=== PATIENT | female | born 1970 | race Caucasian/White ===

== ENCOUNTER → 2016-10-31 | Outpatient (CLI) | payer BC ==
--- NOTE | 2016-10-31 14:27 | FL ---
Esophagram INDICATION: Worsening aspiration of water and thin liquids, vomiting at night Double air-contrast technique is utilized to evaluate the esophagus. The esophagus dilates to normal caliber has normal contour to the gastroesophageal junction. Gastroesophageal junction opens to colten l caliber. No intraluminal or extramural defects are evident. Reflux was not elicited during the exam ination. No secondary or tertiary contractions were evident. There is complete stripping of the esoph ageal bolus the horizontal drinking position. IMPRESSIONS: 1. Normal esophagram
== END | disposition home or self-care (01) ==
LOC: RADFLWHC 08:21
PROVIDERS: ATTEND Otolaryngology
DX: R13.10 Dysphagia, unspecified (principal); R49.0 Dysphonia
CPT/HCPCS: 74220

== ENCOUNTER → 2016-12-01 | Outpatient (CLI) | payer BC ==
[2016-12-01 11:02] LABS: Appearance,Urine Turbid (Clear); Bilirubin,Urine Negative (Negative); Glucose,Urine (UA) Negative (Negative); Ketones,Urine Negative (Negative); Leukocyte Esterase,Urine Negative (Negative); Mucus,Urine Rare /hpf; Nitrite,Urine Negative (Negative); PH, Urine 5.5 (5.0-8.0); Particle Count 3026; Protein,Urine Negative (Negative); RBC,Urine 13 /hpf (0-5); Specific Gravity,Urine 1.012 (1.001-1.035); Squamous Epithelial Cell,Urine 1 /hpf (0-4); UA Billing (MACRO vs. MICRO) MICRO; Uric Acid Crystals,Urine Moderate /hpf; Urobilinogen,Urine <2.0 mg/dL (<2.0); WBC,Urine 1 /hpf (0-5)
== END | disposition home or self-care (01) ==
LOC: LABWHC1 10:16
PROVIDERS: ATTEND Nurse Practitioner
DX: N39.0 Urinary tract infection, site not specified (principal)
CPT/HCPCS: 81001; 87086

== ENCOUNTER → 2016-12-02 | Outpatient (CLI) | payer BC ==
--- NOTE | 2016-12-02 10:43 | XR ---
EXAMINATION TYPE: XR KUB DATE OF EXAM: 12/02/2016 10:18 AM CLINICAL HISTORY: Hematuria per order. Possible left-sided kidney stone per patient. TECHNIQUE: Single supine KUB image of the abdomen is obtained. COMPARISON: None. FINDINGS: No definite nephrolithiasis though some lucency and fecal debris overlies left kidney. Roun d densities in pelvis favor phleboliths. Lung bases are clear. Visualized osseous structures are intact. There is overall nonobstructive bowel gas pattern. Entire pelvis is not included. IMPRESSION: No definite nephrolithiasis.
--- NOTE | 2016-12-02 11:09 | US ---
EXAMINATION TYPE: US kidneys/renal and bladder DATE OF EXAM: 12/02/2016 10:33 AM COMPARISON: Same day abdominal x-ray CLINICAL HISTORY: Hematuria R31.9. EXAM MEASUREMENTS: Right Kidney: 10.8 x 4.3 x 3.4 cm Left Kidney: 10.9 x 4.2 x 5.1 cm TECHNOLOGIST IMPRESSION: Right Kidney: Lower pole echogenic focus = 0.4 x 0.4 x 0.4 cm Left Kidney: wnl Bladder: wnl as visualized Bilateral Jets seen There is no evidence for hydronephrosis at this point in time. A 4 mm nonshadowing hyperechoic focus lower pole level right kidney could reflect nonobstructing calculus. Is not definitively seen on plai n film. No masses are identified. The urinary bladder is not greatly distended without intraluminal mass or wall thickening. Bilateral ureteral jets are felt seen on last images saved. IMPRESSION: Possible 4 mm nonobstructing calculus lower pole level right kidney. No hydronephrosis is evident gely aterally.
== END ==
LOC: RADUSWWP 09:38
PROVIDERS: ATTEND Urology
DX: R31.9 Hematuria, unspecified (principal)
CPT/HCPCS: 74000; 76770

== ENCOUNTER 2017-11-06 06:59 | Day surgery (SDC) | payer BC ==
[2017-11-03 14:17] VITALS: BMI 18.6
[~2017-11-06 06:59] MED LIST: LACTATED RINGERS 1,000 ML IV SCH
[2017-11-06 07:12] VITALS: TEMP 98
[2017-11-06] MEDS ORDERED: PROPOFOL 10 MG/ML 20 ML VIAL IV ONE (07:32)
--- NOTE | 2017-11-06 07:57 | P.PCN ---
Date of Procedure: 11/06/17 Procedure(s) Performed: BRIEF HISTORY: Patient is a 47-year-old pleasant white female, scheduled for an elective colonoscopy as a part of lower abdominal pain, change in bowel habits and rectal bleeding and family history of colon cancer. PROCEDURE PERFORMED: Colonoscopy. PREOPERATIVE DIAGNOSIS: Rectal bleeding, change in bowel habits and family history of colon cancer. IV sedation per Anesthesia. PROCEDURE: After informed consent was obtained, the patient, was brought into the endoscopy unit. IV sedation was administered by Anesthesia under continuous monitoring. Digital rectal examination was normal. Initially the Olympus CF- 160 flexible video colonoscope was then inserted in the rectum, gradually advanced into the cecum without any difficulty. Careful examination was performed as the scope was gradually being withdrawn. Ileocecal valve and the appendiceal orifice were visualized and appeared normal. Prep was excellent. Mucosa of the cecum, ascending colon, transverse colon, descending colon, sigmoid colon, and rectum appeared normal. Retroflexion was performed in the rectum and no lesions were seen. The patient tolerated the procedure well. IMPRESSION: Normal-appearing colon from rectum to cecum with no evidence of colorectal neoplasia . Small internal hemorrhoids. RECOMMENDATIONS: Findings of this examination were discussed with the patient as well as her family. She was advised to be a high-fiber diet, take fiber supplements a regular basis and avoid straining and constipation. She can have a repeat screening colonoscopy in 5 years because of family history of colon cancer.
[2017-11-06 08:02] VITALS: RESP 16
[2017-11-06 08:40] VITALS: BP 115/67; PULSE 68
== END 2017-11-06 09:00 | disposition home or self-care (01) ==
LOC: ORWHC2ENDO 06:59
PROVIDERS: ATTEND Internal Medicine Gastroenterology
DX: K64.8 Other hemorrhoids (principal); K62.5 Hemorrhage of anus and rectum; R10.30 Lower abdominal pain, unspecified; Z79.1 Long term (current) use of non-steroidal anti-inflammatories (NSAID); Z80.0 Family history of malignant neoplasm of digestive organs; Z79.51 Long term (current) use of inhaled steroids; Z79.899 Other long term (current) drug therapy; Z88.1 Allergy status to other antibiotic agents
CPT/HCPCS: 81025; 45378; J2704

== ENCOUNTER → 2018-06-30 | Outpatient (CLI) | payer BC ==
--- NOTE | 2018-06-30 10:02 | MM ---
Reason for exam: screening (asymptomatic). Last mammogram was performed 3 years and 9 months ago. History: Took hormonal contraceptives for 10 years beginning at age 25. Physical Findings: A clinical breast exam by your physician is recommended on an annual basis and results should be correlated with mammographic findings. MG 3D Screening Mammo W/Cad Bilateral CC and MLO view(s) were taken. Prior study comparison: September 20, 2014, bilateral MG screening mammo w CAD. May 28, 2011, bilateral digital screening mammo w/CAD. The breast tissue is heterogeneously dense. This may lower the sensitivity of mammography. No suspicious abnormality. No significant changes when compared with prior studies. ASSESSMENT: Negative, BI-RAD 1 RECOMMENDATION: Routine screening mammogram of both breasts in 1 year.
== END | disposition home or self-care (01) ==
LOC: RADMAMWWP 07:27
PROVIDERS: ATTEND Obstetrics & Gynecology
DX: Z12.31 Encounter for screening mammogram for malignant neoplasm of breast (principal)
CPT/HCPCS: 77063; 77067

== ENCOUNTER → 2018-07-08 | Outpatient (CLI) | payer BC ==
[2018-07-08 09:22] LABS: HCT 41.6 % (34.0-46.0); MCH 29.4 pg (25.0-35.0); MCHC 33.6 g/dL (31.0-37.0); MCV 87.5 fL (80.0-100.0); Mean Platelet Volume 6.8; Platelet Count 283 k/uL (150-450); RBC 4.76 m/uL (3.80-5.40); RDW 12.3 % (11.5-15.5); WBC 5.8 k/uL (3.8-10.6)
== END | disposition home or self-care (01) ==
LOC: LABWHC1 08:26
PROVIDERS: ATTEND Obstetrics & Gynecology
DX: N91.2 Amenorrhea, unspecified (principal); Z13.220 Encounter for screening for lipoid disorders; Z13.29 Encounter for screening for other suspected endocrine disorder
CPT/HCPCS: 36415; 80061; 82306; 82670; 82947; 83001; 83002; 84439; 84443; 84479; 85027

== ENCOUNTER → 2019-04-28 | Outpatient (CLI) | payer BC ==
[2019-04-28 10:54] LABS: Basophils % (A) 1 %; Eosinophils # (A) 0.3 k/uL (0-0.7); Eosinophils % (A) 5 %; HCT 39.4 % (34.0-46.0); HGB 13.5 gm/dL (11.4-16.0); Lymphocytes # (A) 1.6 k/uL (1.0-4.8); Lymphocytes % (A) 34 %; MCH 29.9 pg (25.0-35.0); MCHC 34.4 g/dL (31.0-37.0); MCV 86.8 fL (80.0-100.0); Monocytes # (A) 0.3 k/uL (0-1.0); Monocytes % (A) 7 %; Neutrophils # (A) 2.5 k/uL (1.3-7.7); Neutrophils % (A) 51 %; Platelet Count 263 k/uL (150-450); RBC 4.54 m/uL (3.80-5.40); RDW 12.5 % (11.5-15.5); WBC 4.8 k/uL (3.8-10.6)
[2019-04-28 18:43] LABS: African American GFR (CKD) 117.9 (60.0-200.0); BUN/Creat Ratio 18.57 Ratio (12.00-20.00); Bilirubin, Conjugated 0.2 mg/dL (0.20-0.40); Bilirubin,Unconjugated 0.6 mg/dL; LDL Cholesterol,Calculated 77.4 mg/dL (0.0-131.0); Potassium 3.9 mmol/L (3.5-5.5); Total Bilirubin 0.8 mg/dL (0.2-1.2); VLDL Calculation 13.6 mg/dL (5.00-40.00)
[2019-04-28 21:04] LABS: Hemoglobin A1C 4.8 % (4.0-6.0)
== END ==
LOC: LABWHC1 09:45
PROVIDERS: ATTEND Orthopaedic Surgery
DX: Z00.00 Encounter for general adult medical examination without abnormal findings (principal); K21.9 Gastro-esophageal reflux disease without esophagitis; E55.9 Vitamin D deficiency, unspecified; R53.83 Other fatigue; Z79.899 Other long term (current) drug therapy
CPT/HCPCS: 36415; 80053; 80061; 82248; 82306; 83036; 84439; 84443; 85025

== ENCOUNTER → 2019-06-28 | Outpatient (CLI) | payer BC | END | disposition home or self-care (01) | LOC: CPPFTMAIN 09:35 | PROVIDERS: ATTEND Internal Medicine Critical Care Medicine | DX: J45.909 Unspecified asthma, uncomplicated (principal) | CPT/HCPCS: 94060; 94726; 94729 ==

== ENCOUNTER → 2019-07-28 | Outpatient (CLI) | payer BC ==
[2019-07-28 09:07] LABS: Basophils % (A) 1 %; Eosinophils # (A) 0.3 k/uL (0-0.7); Eosinophils % (A) 5 %; HCT 39.9 % (34.0-46.0); HGB 13.7 gm/dL (11.4-16.0); Lymphocytes # (A) 1.5 k/uL (1.0-4.8); Lymphocytes % (A) 31 %; MCH 29.8 pg (25.0-35.0); MCHC 34.3 g/dL (31.0-37.0); MCV 87.1 fL (80.0-100.0); Monocytes # (A) 0.4 k/uL (0-1.0); Monocytes % (A) 8 %; Neutrophils # (A) 2.5 k/uL (1.3-7.7); Neutrophils % (A) 52 %; Platelet Count 303 k/uL (150-450); RBC 4.58 m/uL (3.80-5.40); WBC 4.7 k/uL (3.8-10.6)
[2019-07-28 09:21] LABS: African American GFR (CKD) >90 (>60 ml/min/1.73 sqM); Anion Gap 9 mmol/L; Blood Urea Nitrogen 16 mg/dL (7-17); Calcium 9.8 mg/dL (8.4-10.2); Carbon Dioxide 29 mmol/L (22-30); Chloride 103 mmol/L (98-107); Glucose 80 mg/dL (74-99); Sodium 141 mmol/L (137-145)
[2019-07-28 09:23] LABS: Appearance,Urine Clear (Clear); Bilirubin,Urine Negative (Negative); Blood,Urine Negative (Negative); Color,Urine Yellow; Glucose,Urine (UA) Negative (Negative); Ketones,Urine Negative (Negative); Leukocyte Esterase,Urine Negative (Negative); Nitrite,Urine Negative (Negative); PH, Urine 5.5 (5.0-8.0); Protein,Urine Trace (Negative); Specific Gravity,Urine 1.024 (1.001-1.035); Urobilinogen,Urine <2.0 mg/dL (<2.0)
[2019-07-28 09:28] LABS: Partial Thromboplastin Time 26.6 sec (22.0-30.0); Prothrombin Time 10.5 sec (9.0-12.0)
--- NOTE | 2019-07-28 10:01 | XR ---
EXAMINATION TYPE: XR chest 2V DATE OF EXAM: 07/28/2019 COMPARISON: 08/16/2013 HISTORY: Preoperative examination TECHNIQUE: Frontal and lateral views of the chest are obtained. FINDINGS: Pulmonary hyperinflation with flattening of the diaphragms of underlying COPD. Increased r etrosternal airspace of underlying COPD. There is no focal air space opacity, pleural effusion, or pn eumothorax seen. Stable calcified granuloma along the right lower lung laterally dating back to 2012. Bilateral nipple shadows. The cardiac silhouette size is within normal limits. The osseous structu res are intact. Minimal degenerative changes of thoracic spine. IMPRESSION: No acute cardiopulmonary process. Underlying COPD.
== END | disposition home or self-care (01) ==
LOC: LABPAT 08:06
PROVIDERS: ATTEND Orthopaedic Surgery Orthopaedic Surgery of the Spine
DX: Z01.812 Encounter for preprocedural laboratory examination (principal); M48.02 Spinal stenosis, cervical region
CPT/HCPCS: 36415; 71046; 80048; 81003; 85025; 85610; 85730; 93005

== ENCOUNTER 2019-08-08 12:01 | Observation (INO) | payer BC ==
[~2019-08-08 12:01] MED LIST changes: +BACITRACIN 50,000 UNIT, POLYMYXIN B 500,000 UNIT in SODIUM CHLORIDE 0.9% IRRIGATIO 1,00... IRRIGATION ONE; +DEXAMETHASONE SOD PHOSPHATE 10 MG/ML 1 ML VIAL IV ONE; +HYDROmorphone 0.5 MG/0.5 ML SYRINGE IVP PRN; -LACTATED RINGERS 1,000 ML IV SCH; +LIDOCAINE 1% 20 ML VIAL (10MG/ML) FOR IV START INTRADERMA PRN; +MIDAZOLAM 2 MG/2 ML VIAL IV PRN; +ONDANSETRON 4 MG/2 ML VIAL IVP ONE; +fentaNYL (PF) 50 MCG/ML 2 ML AMP IV PRN
[2019-08-08] MEDS: LACTATED RINGERS 1,000 ML IV SCH ×2 (12:48→13:00)
[2019-08-08] MEDS ORDERED: SCOPOLAMINE 1.5MG/72HR PATCH TRANSDERM ONE (12:51)
[2019-08-08] MEDS ORDERED: LIDOCAINE 1% INJ 10MG/ML (20 ML MDV) ONE (13:01)
[2019-08-08] MEDS ORDERED: GLYCOPYRROLATE 0.2 MG/ML 2 ML VIAL ONE (13:01)
[2019-08-08] MEDS ORDERED: SUCCINYLCHOLINE CHLORIDE 100 MG/5 ML SYR IV ONE (13:01)
[2019-08-08] MEDS ORDERED: NEOSTIGMINE 1 MG/ML 10 ML VIAL ONE (13:01)
[2019-08-08] MEDS ORDERED: MIDAZOLAM 2 MG/2 ML VIAL ONE (13:01)
[2019-08-08] MEDS ORDERED: PROPOFOL 10 MG/ML 20 ML VIAL IV ONE (13:01)
[2019-08-08] MEDS ORDERED: DEXAMETHASONE SOD PHOS (MDV) 100 MG/10 ML VIAL ONE (13:01)
[2019-08-08] MEDS ORDERED: fentaNYL (PF) 50 MCG/ML 2 ML AMP ONE (13:01)
[2019-08-08] MEDS ORDERED: ONDANSETRON 4 MG/2 ML VIAL ONE (13:01)
[2019-08-08] MEDS ORDERED: ROCURONIUM BROMIDE 10 MG/ML 10 ML VIAL IV ONE (13:01)
[2019-08-08] MEDS ORDERED: THROMBIN (BOVINE) 5,000 UNIT VIAL TOPICAL ONE ×2 (13:07)
[2019-08-08] MEDS ORDERED: GELATIN SPONGE,ABSORB (SMALL) 1 EACH SPONGE TOPICAL ONE ×2 (13:07)
[2019-08-08] MEDS ORDERED: BUPIVACAINE (PF) 0.25% 30 ML VIAL SQ ONE (13:43)
[2019-08-08] MEDS ORDERED: LIDOCAINE 1%-EPI 1:100,000 20 ML VIAL SQ ONE (13:43)
[2019-08-08] MEDS ORDERED: LACTATED RINGERS 1,000 ML IV ONE ×2 (14:14→15:13)
[2019-08-08] MEDS ORDERED: HYDROmorphone 0.5 MG/0.5 ML SYRINGE IVP PRN (15:32)
[2019-08-08] MEDS ORDERED: HYDROcodone/APAP 5-325MG 1 EACH TAB PO PRN (15:32)
[2019-08-08] MEDS ORDERED: Acetaminophen-Codeine 300-30mg TAB PO PRN (15:33)
[2019-08-08] MEDS ORDERED: VITAMIN C PO PRN (15:38)
[2019-08-08] MEDS ORDERED: ALBUTEROL NEBULIZED 2.5 MG/3 ML INHALATION PRN (15:38)
[2019-08-08] MEDS ORDERED: LORATADINE-PSEUDOEPH 5-120 MG 1 EACH TAB.ER.12H PO PRN (15:38)
[2019-08-08] MEDS ORDERED: ACETAMINOPHEN TAB 500 MG TAB PO PRN (15:38)
--- NOTE | 2019-08-08 15:52 | P.OP ---
Date of Procedure: 08/08/19 Preoperative Diagnosis: Cervical stenosis C4 5 C5 6 C6 7, degenerative disc disease, spondylolisthesis C4 5, neck pain, upper extremity radiculopathy Postoperative Diagnosis: Same Anesthesia: GETA Pathology: none sent Condition: stable Disposition: PACU Description of Procedure: BRIEF OPERATIVE NOTE Preoperative Diagnosis:Cervical stenosis C4 5 C5 6 C6 7, degenerative disc disease, spondylolisthesis C4 5, neck pain, upper extremity radiculopathy Postoperative Diagnosis:Cervical stenosis C4 5 C5 6 C6 7, degenerative disc disease, spondylolisthesis C4 5, neck pain, upper extremity radiculopathy Procedure: Anterior cervical decompression with discectomy and fusion C4 5 C5 6 C6 7 Placement of interbody graft C4 5 C5 6 C6 7 Application of anterior cervical plate C4 5 6 7 Surgeon: Dr. Arzate Flavoring Oil Filterer: Rafat Mcbride is present throughout the entire the case persistence during positioning, dissection, exposure, visualization, and all crucial elements of the case as well as closure. Anesthesia: General anesthesia per Dr. Vargas Estimated blood loss: Approximately 100 mL Complications: None apparent Components implanted: K2M [place] anterior cervical plate system with screws measuring 12 mm with ViKos interbody allograft bone graft and 1 mL of DBX bone putty to supplemental allograft bone graft Disposition: To recovery room in good stable condition. OPERATIVE INDICATIONS The patient has had long-standing issues in their neck and upper extremities. She's been having worsening symptoms despite aggressive conservative care. She is having pain at her neck and at her left upper extremity. She has been having worsening troubles and had been wearing a brace even while at work. 2 months ago back in May she had significant worsening of her symptoms and she was found to have evidence of severe disc degeneration with stenosis and changes with correlated with her neck and upper extremity symptoms. she had been through epidural steroid injections which gave her some short-term relief but was not giving her any prolonged benefit. The patient has been through conservative treatment. We discussed various treatment options including surgery, and the patient wishes to proceed with surgery We discussed the risk, patient's alternatives and benefits of surgery including but not limited to, risk of bleeding risk of infection, risk of need for further surgery, risk of decreased, loss of motion, muscle function, malunion nonunion, hardware failure, nerve damage, paralysis, heart attack, and . OPERATIVE SUMMARY After discussing all the risks, patient alternatives and benefits at length, the patient elected to proceed with surgical intervention, signed informed consent, and presented for their procedure. The patient was seen and examined in the preoperative holding area and the surgical site was marked. The patient was given antibiotics and brought to the operating room. The patient was positioned on the operating room table in a supine position being careful to pad any bony prominences and pressure points. The patient was sedated and intubated by anesthesia in standard fashion. Once the airway and C- spine were stabilized the patient's arms were padded and tucked at her side, with her shoulders gently taped. The head was placed in a donut pad with the neck in good neutral alignment and position. We were careful to maintain the patient's cervical spine and good neutral alignment and position throughout. The patient was prepped and draped in a normal standard fashion. An appropriate timeout and keystone protocol performed. We were able to proceed with the surgery. The local wound area was infiltrated with local anesthetic. An incision was made transversely approximately 2-1/2 cm over the appropriate levels over C6. Dissection was taken down subcutaneously to the level of the platysma which was split in line with its fibers. Dissection was taken with a carotid approach, with the trachea and esophagus medial and the carotid sheath laterally. We dissected down to the anterior surface of the vertebral bodies. Intraoperative x-ray was taken which showed a marker at the appropriate level of C6 7. With the appropriate level positively confirmed, we were able to proceed with discectomy at the appropriate levels starting at C6 7 and then moving C5 6 and then C4 5. All of the operative levels were exposed appropriately. The patient had all their twitches back, and there was no evidence of recurrent laryngeal issue. The wound was copiously irrigated and suctioned dry as had been done periodically throughout the case. At the appropriate level/levels, I established an annulotomy with an 11 blade scalpel. A discectomy was performed with a combination of pituitary rongeurs, curettes, a high-speed bur, and Kerrison rongeurs. The posterior longitudinal ligament was taken down as were any posterior osteophytes. Each level and significant disc protrusion. At C5 6 there was severe disc loss and essentially obliteration of the disc space with grinding of the vertebral bodies 1 atop the other. I was able to remove the disc and the endplates as well as the posterior osteophytes and posterior longitudinal ligament. This gave good central and bilateral foraminal decompression. There is no evidence of any dural tear or leak. The endplates were prepared with a high-speed bur. With the endplates in good parallel position, I was able to size for the appropriate size interbody graft. The wound was irrigated and suctioned dry the graft was prepared and malleted into position. It had good alignment and position with the anterior surface flush with the anterior surface of the vertebral bodies. This was done similarly the appropriate levels first at C6 7 and then at C5 6 and at C4 5. With the grafts intact, I was able to measure and contour and appropriate sized plate. The plate was positioned at the midline over the appropriate levels at C5 6 and 7. Screw holes were established with a hand drill and drill guide. Screws were placed in good alignment and position with excellent bony purchase. They were seated under the locking device. The construct was checked and found to be stable. Intraoperative x-ray was taken which showed good alignment and position of the implants at the appropriate levels. There was no evidence of any dural tear or leak. Good hemostasis was maintained. The wound was copiously irrigated and suctioned dry as had been done periodically throughout the case. The platysma was closed with absorbable suture. The subcutaneous tissue was closed. The subcuticular tissue was closed with absorbable suture. The wound was cleaned and dried and dressed appropriately. A soft cervical collar was placed appropriately. The patient was woken up by anesthesia, extubated, transferred back gently to their hospital bed and brought to the recovery room in good stable condition. The patient will be admitted to the hospital for appropriate postoperative care, medical management and monitoring. We will continue to follow them closely about the postoperative course.
[2019-08-08] MEDS ORDERED: diphenhydrAMINE 50 MG/ML 1 ML VIAL IVP ONE (16:09)
[2019-08-08 17:16] VITALS: BMI 17.5
[2019-08-08] MEDS: SODIUM CHLORIDE 0.9% 1,000 ML IV SCH (17:19)
[2019-08-08] MEDS ORDERED: ACETAMINOPHEN IV (For NPO) 650 MG in EMPTY BAG 1 BAG IVPB PRN (17:21)
[2019-08-08] MEDS: BENZOCAINE/MENTHOL LOZENG 1 EACH LOZENGE MUCOUS MEM PRN ×2 (18:16→22:49)
[2019-08-08] MEDS ORDERED: LEVALBUTEROL INHALATION PRN (18:59)
[2019-08-08] MEDS: LEVALBUTEROL 1.25 MG/3 ML INHALATION SCH (19:11)
[2019-08-08] MEDS ORDERED: ALBUTEROL NEBULIZED 2.5 MG/3 ML INHALATION SCH (20:00)
[2019-08-08] MEDS ORDERED: SYMBICORT 160-4.5 MCG INHALER INHALATION SCH (20:00)
[2019-08-08] MEDS ORDERED: DULERA INHALATION SCH (20:00)
[2019-08-08] MEDS: ONDANSETRON 4 MG/2 ML VIAL IVP PRN (20:58)
[2019-08-08] MEDS ORDERED: MONTELUKAST 10 MG TAB PO SCH (21:00)
[2019-08-08] MEDS: SULFAMETHOX-TMP 800-160MG 1 EACH TAB PO SCH (21:13)
[2019-08-08] MEDS ORDERED: diphenhydrAMINE 25 MG CAP PO PRN (23:00)
[2019-08-09] MEDS: Acetaminophen-Codeine 300-30mg TAB PO PRN ×2 (00:57→13:13)
[2019-08-09] MEDS: BENZOCAINE/MENTHOL LOZENG 1 EACH LOZENGE MUCOUS MEM PRN ×2 (04:24→08:43)
--- NOTE | 2019-08-09 05:09 | XR ---
EXAMINATION TYPE: XR cervical spine 1V DATE OF EXAM: 08/08/2019 COMPARISON: NONE HISTORY: 49-year-old female heart replacement TECHNIQUE: Single crosstable intraoperative lateral view FINDINGS: Patient is intubated. Placement of C4-C7 ACDF hardware. Alignment is maintained. IMPRESSION: C4-C7 ACDF hardware placement. Intraoperative crosstable radiograph.
--- NOTE | 2019-08-09 05:10 | XR ---
EXAMINATION TYPE: XR cervical spine 1V DATE OF EXAM: 08/08/2019 COMPARISON: NONE HISTORY: 49-year-old female needle placement TECHNIQUE: Single intraoperative crosstable lateral view FINDINGS: The patient is intubated. Moderate to advanced disc/endplate degenerative change focally at C5-C6. Gordillo rgical needle is present anteriorly at the C6-C7 disc interspace. IMPRESSION: Surgical needle anteriorly in the C6-C7 disc interspace.
[2019-08-09] MEDS: LACTATED RINGERS 1,000 ML IV SCH (05:28)
[2019-08-09] MEDS: SODIUM CHLORIDE 0.9% 1,000 ML IV SCH (06:59)
[2019-08-09] MEDS: SULFAMETHOX-TMP 800-160MG 1 EACH TAB PO SCH (07:36)
[2019-08-09] MEDS: LEVALBUTEROL 1.25 MG/3 ML INHALATION SCH (07:52)
[2019-08-09 08:08] VITALS: BP 120/67; PULSE 78; RESP 17; TEMP 98.4
[2019-08-09] MEDS: ONDANSETRON 4 MG/2 ML VIAL IVP PRN (08:44)
[2019-08-09] MEDS ORDERED: ERGOCALCIFEROL 50,000 UNIT CAP PO SCH (09:00)
[2019-08-09] MEDS ORDERED: CHOLECALCIFEROL 1,000 UNIT TAB PO SCH (09:00)
[2019-08-09] MEDS ORDERED: SENNOSIDES-DOCUSATE SODIUM 1 EACH TAB PO SCH ×2 (09:00)
[2019-08-09] MEDS ORDERED: PANTOPRAZOLE 40 MG TABLET PO SCH (09:00)
--- NOTE | 2019-08-09 11:59 | CONS ---
CONSULTATION This is a 49-year-old female who is postop day #1 status post anterior cervical decompression with discectomy and fusion, C4-C5, C5-C6, C6-C7, placement of interbody graft at C4-C5, C5-C6, and C6-C7 and application of anterior cervical plate. The patient is doing well. She likely will be discharged home later today. She does have a history of chronic bronchial asthma. I saw her last . At that time, her asthma was a bit active and we gave her Depo-Medrol. We also provided her with a nebulizer machine for updrafts at home. She does use Xopenex. She is also on Dulera and Singulair for her asthma. Currently, she is doing well. She does have pain in the neck area. She is having some difficulty swallowing. She is a bit hoarse. But all-in- all, doing very well. She denies any shortness of breath, difficulty breathing, coughing, wheezing or phlegm production. MEDICAL HISTORY: Her medical history includes chronic bronchial asthma, glaucoma, headaches, and urinary incontinence. ALLERGIES: Allergies are LEVAQUIN. SURGICAL HISTORY: Surgical history includes tonsillectomy, adenoidectomy, bilateral knee scope, and hernia repair. FAMILY HISTORY: Positive for diabetes and hypertension. SOCIAL HISTORY: Negative for tobacco. She is a social drinker. She does not use illicit drugs. The rest of the history is unremarkable. 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 REVIEW OF SYSTEMS: CONSTITUTIONAL: Negative. NEUROLOGIC: Negative. HEENT: Negative. CARDIOVASCULAR: Negative. PULMONARY: Negative. GI: Negative. : Negative. RHEUMATOLOGIC: Negative. IMMUNOLOGIC: Negative. ENDOCRINOLOGIC: Negative. DERMATOLOGIC: Negative. PHYSICAL EXAMINATION: VITAL SIGNS: Current vital signs are reviewed. Temperature is 98.4, heart rate 76, respiratory rate 17, blood pressure 120/67, mean 84 and room air saturation 95%. GENERAL: She appears in no acute distress. HEENT: Examination is grossly unremarkable. Mucous membranes are moist. No oral lesions. NECK: Supple. Limited range of motion. The bandages are noted on the anterior surface of the neck favoring the right side from the recent surgery. CARDIOVASCULAR: Examination reveals regular rhythm and rate. Heart rate 78 beats per minute. S1, S2 normal. LUNGS: Reveal clear breath sounds. No wheezes, rhonchi, or crackles. ABDOMEN: Soft. Bowel sounds are heard. EXTREMITIES: Are intact. No cyanosis, clubbing, or edema. SKIN: Without rash. NEUROLOGICAL: Examination is brief, but nonfocal. Labs and x-rays reviewed. No labs to report. This is a chest x-ray that was done today which showed C4-C7 ACDF hardware placement. MEDICATIONS: Medications are reviewed. She is on her usual asthma medications as well as some pain medications. ASSESSMENT: 1. Postoperative day #1 status post anterior cervical fusion with placement of a titanium plate and cadaveric bone for severe cervical disc disease. 2. History of chronic bronchial asthma. 3. Multiple other medical problems and comorbidities as listed above. PLAN: The patient may be discharged home today. She will see me in the office when she is feeling better. She knows to call me should her asthma act up. She will continue using her updraft machine as needed, Dulera 200/5 two puffs twice a day and Singulair 10 mg at bedtime. Additional recommendations and suggestions are forthcoming. Prognosis is guarded. MMODL / IJN: [id number] /
--- NOTE | 2019-08-09 12:49 | P.DS ---
Providers Date of admission: 08/08/19 23:00 Expected date of discharge: 08/09/19 Attending physician: Jonny Arzate Primary care physician: Garfield Mckeon - Discharge Diagnosis(es) (1) Status post cervical spinal fusion Current Visit: Yes Status: Acute (2) Degenerative disc disease, cervical Current Visit: Yes Status: Acute (3) Radiculopathy affecting upper extremity Current Visit: Yes Status: Acute (4) Cervicalgia Current Visit: Yes Status: Acute (5) Spondylolisthesis, cervical region Current Visit: Yes Status: Acute Hospital Course: This is a pleasant 49 old female who presented with C4-5, C5-6, and C6-7 cervical stenosis, degenerative disc disease, C4-5 spondylolisthesis, cervicalgia, and left upper extremity radiculopathy who failed outpatient conservative therapy. She was admitted for a C4-5, C5-6, and C6-7 anterior cervical decompression and fusion. The patient tolerated the procedure well and did well postoperatively. She is currently had resolution of her left upper extremity radiculopathy symptoms. She has some soreness in her cervical spine but is not spearing sitting significant pain. Her most significant symptom is difficulty with swallowing. She is able to eat and drink soft foods both hot and cold. She does feel she is ready for discharge home today. Condition on day of discharge stable. Patient will be discharged home. Patient was cleared preoperatively for surgery by Dr. Mckeon. Patient currently denies any nausea, vomiting, fever, or chills. Patient is voiding freely without difficulty. Patient may shower silver and Tegaderm dressing intact. Patient may remove silver and Tegaderm dressing in 3 days and shower without a dressing at that time. Patient should refrain from driving until at least after their first follow-up appointment in the office. Patient should avoid excessive neck flexion, extension, rotation, and lateral sidebending; no overhead lifting; no lifting greater than 10 pounds. MAPS has been reviewed today, 08/09/2019, with an Overall Overdose Risk Score of 000. An "Opiod Start Talking" Form has been signed and placed in the patient's chart. A prescription has been written for Tylenol #3 (300mg-30mg) take 1-2 tabs every 4 hours as needed for pain, dispensed #84. Patient also given a pres cription for Zofran ODT 4 mg every 8 hours as needed for nausea, dispensed #42. Prescription is have been sent to the pharmacy. Patient may resume other previously prescribed home medications while avoiding anti-inflammatories over the next 6 weeks postoperatively. Physical Exam on day of discharge: Patient is awake, alert, and oriented 3 Vital signs stable Good chest excursion with deep inspiration and expiration Abdomen soft nontender No signs or symptoms of DVT; no calf pain Full range of motion of the cervical spine with adequate flexion, extension, and bilateral rotation Entry Specialist strength, thumb strength, interosseous strength, biceps strength, triceps strength, and shoulder strength positive sustained bilaterally Incision is clean, dry, and intact; no erythema, purulence, or signs of infection Silver and Tegaderm dressing intact Dressing is clean and dry with some mild bruising around the surgical site Procedures: C4-5, C5-6, and C6-7 anterior cervical decompression and fusion Patient Condition at Discharge: Stable Plan - Discharge Summary Discharge Rx Participant: Yes New Discharge Prescriptions: New Acetaminophen-Codeine 300-30mg [Tylenol #3] 1 - 2 tab PO Q4H PRN #84 tablet PRN Reason: Pain Ondansetron [Zofran ODT] 4 mg PO Q8HR PRN #42 tab PRN Reason: Nausea No Action Montelukast [Singulair] 10 mg PO HS Pantoprazole Sodium [Protonix] 40 mg PO DAILY Sulfamethox-Tmp 800-160Mg [Bactrim DS 800-160 mg] 1 tab PO Q12HR Loratadine-Pseudoeph 10-240 mg [Claritin-D 24 Hour] 1 tab PO DAILY PRN PRN Reason: Allergy Symptoms Ergocalciferol [Vitamin D2] 50,000 unit PO Q72H Cholecalciferol (Vitamin D3) [Vitamin D3] 2,000 unit PO DAILY Mirabegron [Myrbetriq] 50 mg PO DAILY Mometasone/Formoterol [Dulera 200 Mcg/5 Mcg Inhaler] 2 puff INHALATION HS Xopenex Inhaler 2 puff IH Q8HR PRN PRN Reason: sob Ibuprofen [Advil] 200 mg PO DIRECTED PRN PRN Reason: Pain Acetaminophen [Tylenol Extra Strength] 500 - 1,000 mg PO DIRECTED PRN PRN Reason: Pain Vitamin C (Dose Unknown) 1 tab PO DIRECTED PRN PRN Reason: immune support Levalbuterol Nebulized (Conc) [Xopenex Nebulized (Conc)] 1 ampul INHALATION BID Discharge Medication List Montelukast [Singulair] 10 mg PO HS 10/05/14 [History] Pantoprazole Sodium [Protonix] 40 mg PO DAILY 11/06/17 [History] Acetaminophen [Tylenol Extra Strength] 500 - 1,000 mg PO DIRECTED PRN 08/02/19 [History] Cholecalciferol (Vitamin D3) [Vitamin D3] 2,000 unit PO DAILY 08/02/19 [History] Ergocalciferol [Vitamin D2] 50,000 unit PO Q72H 08/02/19 [History] Ibuprofen [Advil] 200 mg PO DIRECTED PRN 08/02/19 [History] Loratadine-Pseudoeph 10-240 mg [Claritin-D 24 Hour] 1 tab PO DAILY PRN 08/02/19 [History] Mirabegron [Myrbetriq] 50 mg PO DAILY 08/02/19 [History] Mometasone/Formoterol [Dulera 200 Mcg/5 Mcg Inhaler] 2 puff INHALATION HS 08/02/19 [History] Sulfamethox-Tmp 800-160Mg [Bactrim DS 800-160 mg] 1 tab PO Q12HR 08/02/19 [History] Vitamin C (Dose Unknown) 1 tab PO DIRECTED PRN 08/02/19 [History] Xopenex Inhaler 2 puff IH Q8HR PRN 08/02/19 [History] Levalbuterol Nebulized (Conc) [Xopenex Nebulized (Conc)] 1 ampul INHALATION BID 08/08/19 [History] Acetaminophen-Codeine 300-30mg [Tylenol #3] 1 - 2 tab PO Q4H PRN #84 tablet 08/09/19 [Rx] Ondansetron [Zofran ODT] 4 mg PO Q8HR PRN #42 tab 08/09/19 [Rx] Follow up Appointment(s)/Referral(s): Jonny Arzate DO [Doctor of Osteopathic Medicine] - 08/23/19 9:30 am Patient Instructions/Handouts: *Surgery [facility] - ([place]) Cervical Surgery Discharge Instructions Activity/Diet/Wound Care/Special Instructions: 1. Patient may shower with silver and Tegaderm dressing intact. 2. Patient may remove silver and Tegaderm dressing in 3 days and shower without a dressing at that time. 3. Patient should refrain from driving until at least after their first follow- up appointment in the office. 4. Patient should avoid excessive cervical extension, flexion, rotation, and sidebending; avoid overhead lifting; no lifting greater than 10 pounds 5. Take medications as prescribed 6. Do not soak in tub Discharge Disposition: HOME SELF-CARE
== END 2019-08-09 14:04 | disposition home or self-care (01) ==
LOC: OR 12:01 → 4SSUR 15:45 → OR 22:43 → 4SSUR 23:00
PROVIDERS: ADMIT Orthopaedic Surgery Orthopaedic Surgery of the Spine; ATTEND Orthopaedic Surgery Orthopaedic Surgery of the Spine
DX: M50.13 Cervical disc disorder with radiculopathy, cervicothoracic region (principal); M48.03 Spinal stenosis, cervicothoracic region; J45.909 Unspecified asthma, uncomplicated; H40.9 Unspecified glaucoma; M43.12 Spondylolisthesis, cervical region; N39.3 Stress incontinence (female) (male); K21.9 Gastro-esophageal reflux disease without esophagitis; G43.909 Migraine, unspecified, not intractable, without status migrainosus; N30.10 Interstitial cystitis (chronic) without hematuria; Z88.1 Allergy status to other antibiotic agents; Z91.018 Allergy to other foods; Z79.899 Other long term (current) drug therapy; Z79.1 Long term (current) use of non-steroidal anti-inflammatories (NSAID); Z79.2 Long term (current) use of antibiotics; Z83.3 Family history of diabetes mellitus; Z82.49 Family history of ischemic heart disease and other diseases of the circulatory system; Z80.42 Family history of malignant neoplasm of prostate; Z82.5 Family history of asthma and other chronic lower respiratory diseases
CPT/HCPCS: 22551; 22552 ×2; 22845; 20931; 94640 ×3; 86900; 86901; 86850; 72020; G0378 ×2; C1713 ×2; C1762 ×2; J2250; J1200; J2710; J0690 ×2; J2405 ×2; J2001; J3010; J1100; J0131; J0330; J2704; J1170

== ENCOUNTER → 2020-03-06 | Outpatient (CLI) | payer BC ==
[2020-03-06 09:07] LABS: HCT 40.5 % (34.0-46.0); HGB 13.8 gm/dL (11.4-16.0); MCH 29.4 pg (25.0-35.0); MCHC 34.2 g/dL (31.0-37.0); Mean Platelet Volume 6.9; Platelet Count 296 k/uL (150-450); RBC 4.71 m/uL (3.80-5.40); RDW 12.1 % (11.5-15.5); WBC 4.7 k/uL (3.8-10.6)
== END | disposition home or self-care (01) ==
LOC: LABWHC1 07:58
PROVIDERS: ATTEND Obstetrics & Gynecology
DX: E55.9 Vitamin D deficiency, unspecified (principal)
CPT/HCPCS: 36415; 82306; 85027

== ENCOUNTER → 2020-04-27 | Outpatient (CLI) | payer BC ==
[2020-04-27 11:13] LABS: Basophils # (A) 0.1 k/uL (0-0.2); Basophils % (A) 1 %; Eosinophils # (A) 0.2 k/uL (0-0.7); Eosinophils % (A) 4 %; HCT 42.5 % (34.0-46.0); HGB 13.9 gm/dL (11.4-16.0); Lymphocytes # (A) 1.4 k/uL (1.0-4.8); Lymphocytes % (A) 28 %; MCH 28.4 pg (25.0-35.0); MCHC 32.8 g/dL (31.0-37.0); MCV 86.8 fL (80.0-100.0); Mean Platelet Volume 7.1; Monocytes # (A) 0.4 k/uL (0-1.0); Monocytes % (A) 8 %; Neutrophils # (A) 2.8 k/uL (1.3-7.7); Neutrophils % (A) 57 %; Platelet Count 266 k/uL (150-450); RBC 4.89 m/uL (3.80-5.40); RDW 12.4 % (11.5-15.5); WBC 4.9 k/uL (3.8-10.6)
[2020-04-27 15:14] LABS: African American GFR (CKD) 99.6 (60.0-200.0); Albumin 4.4 g/dL (3.80-4.90); Albumin/Globulin Ratio 1.83 (1.60-3.17); Anion Gap 6.4 mmol/L (4.00-12.00); BUN/Creat Ratio 17.5 Ratio (12.00-20.00); Calcium 9.5 mg/dL (8.7-10.3); Carbon Dioxide 30.6 mmol/L (21.6-31.8); Globulin 2.4 g/dL (1.6-3.3); Total Bilirubin 1.1 mg/dL (0.2-1.2); Total Protein 6.8 g/dL (6.2-8.2)
[2020-04-27 15:22] LABS: T4, Free (Free Thyroxine) 1.1 ng/dL (0.80-1.80)
[2020-04-27 17:39] LABS: Hemoglobin A1C 4.8 % (4.0-6.0)
== END | disposition home or self-care (01) ==
LOC: LABWHC1 10:16
PROVIDERS: ATTEND Internal Medicine Critical Care Medicine
DX: K21.9 Gastro-esophageal reflux disease without esophagitis (principal); J45.909 Unspecified asthma, uncomplicated; Z79.899 Other long term (current) drug therapy
CPT/HCPCS: 36415; 80053; 82306; 83036; 84439; 84443; 85025

== ENCOUNTER → 2020-07-16 | Outpatient (CLI) | payer BC ==
[2020-07-16 16:21] LABS: Basophils # (A) 0.1 k/uL (0-0.2); Basophils % (A) 2 %; Eosinophils # (A) 0.2 k/uL (0-0.7); Eosinophils % (A) 3 %; HCT 42.1 % (34.0-46.0); HGB 13.7 gm/dL (11.4-16.0); Lymphocytes % (A) 34 %; MCH 28.8 pg (25.0-35.0); MCHC 32.7 g/dL (31.0-37.0); MCV 88.1 fL (80.0-100.0); Mean Platelet Volume 6.7; Monocytes # (A) 0.4 k/uL (0-1.0); Monocytes % (A) 6 %; Neutrophils # (A) 3.1 k/uL (1.3-7.7); Neutrophils % (A) 53 %; Platelet Count 304 k/uL (150-450); RBC 4.78 m/uL (3.80-5.40); RDW 12.1 % (11.5-15.5); WBC 5.8 k/uL (3.8-10.6)
[2020-07-17 01:12] LABS: Erythrocyte Sedimentation Rate 7 mm/Hr (0-30)
== END | disposition home or self-care (01) ==
LOC: LABWHC1 15:25
PROVIDERS: ATTEND Internal Medicine Critical Care Medicine
DX: M31.6 Other giant cell arteritis (principal)
CPT/HCPCS: 36415; 85025; 85652; 86140

== ENCOUNTER → 2020-07-17 | Outpatient (CLI) | payer BC ==
--- NOTE | 2020-07-17 14:24 | CT ---
EXAMINATION TYPE: CT brain wo/w con DATE OF EXAM: 07/17/2020 COMPARISON: HISTORY: Superior injury 1 week ago. Headache with N/V x's [address] DLP: 2144.6 mGycm Automated exposure control for dose reduction was used. CONTRAST: CT scan of the head is performed without and with IV Contrast, patient injected with 100 mL of Isovue 300. FINDINGS: There is no abnormal enhancing mass or midline shift identified. The ventricles and sulci are within normal limits in size. The globes are intact and the visualized sinuses are clear. IMPRESSION: Negative noncontrast and contrast enhanced head CT exam.
== END | disposition home or self-care (01) ==
LOC: RADCTMAIN 13:16
PROVIDERS: ATTEND Internal Medicine Critical Care Medicine
DX: S09.90XA Unspecified injury of head, initial encounter (principal); Z88.1 Allergy status to other antibiotic agents; Z88.8 Allergy status to other drugs, medicaments and biological substances
CPT/HCPCS: 70470; Q9967

== ENCOUNTER → 2021-02-22 | Outpatient (CLI) | payer BC ==
[2021-02-22 22:37] LABS: Basophils # (A) 0.06 X 10*3/uL (0.00-0.10); Eosinophils # (A) 0.11 X 10*3/uL (0.04-0.35); Eosinophils % (A) 1.8 %; HCT 40.4 % (37.2-46.3); HGB 13.2 g/dL (12.0-15.0); Lymphocytes # (A) 1.55 X 10*3/uL (0.90-5.00); Lymphocytes % (A) 26.1 %; MCH 29.3 pg (27.0-32.0); MCHC 32.7 g/dL (32.0-37.0); MCV 89.8 fL (80.0-97.0); Monocytes % (A) 8.4 %; Neutrophils # (A) 3.71 X 10*3/uL (1.80-7.70); Neutrophils % (A) 62.4 %; Platelet Count 256 X 10*3/uL (140-440); RDW 11.8 % (11.5-14.5); WBC 5.95 X 10*3/uL (4.50-10.00)
[2021-02-23 00:30] LABS: Erythrocyte Sedimentation Rate 4 mm/Hr (0-30)
[2021-02-23 06:52] LABS: Cyclic Citrull Pep IgG Unit 2.4 U/mL; Cyclic Citrullinated Pep IgG NEGATIVE (NEGATIVE)
[2021-02-23 13:19] LABS: HLA B27 POSITIVE
[2021-02-23 13:43] LABS: ALT 12 U/L (8-44); AST 24 U/L (13-35); African American GFR (CKD) 116.3 (60.0-200.0); BUN/Creat Ratio 28.57 Ratio (12.00-20.00); C Reactive Protein <0.4 mg/dL (0.0-0.8); Calcium 9.6 mg/dL (8.7-10.3); Carbon Dioxide 22.7 mmol/L (21.6-31.8); Chloride 104 mmol/L (96-109); Creatine Kinase 82 U/L (26-186); Glucose 113 mg/dL (70-110); Non-African American GFR(CKD) 100.3 (60.0-200.0); Potassium 4.3 mmol/L (3.5-5.5); Rheumatoid Factor, Qnt 4 IU/mL (0-15); Sodium 141 mmol/L (135-145); Uric Acid 3.1 mg/dL (2.9-7.7)
[2021-02-25 10:19] LABS: Angiotensin-1 Converting Enz. 45 U/L (8-52)
== END | disposition home or self-care (01) ==
LOC: LABWHC1 13:54
PROVIDERS: ATTEND Orthopaedic Surgery
DX: M75.01 Adhesive capsulitis of right shoulder (principal); M25.511 Pain in right shoulder
CPT/HCPCS: 36415; 80048; 82164; 82306; 82550; 83520; 84439; 84443; 84450; 84460; 84550; 85025; 85652; 86038; 86140; 86200; 86431; 86812

== ENCOUNTER → 2021-03-19 | Outpatient (CLI) | payer BC ==
--- NOTE | 2021-03-20 15:01 | MM ---
Reason for exam: screening (asymptomatic). Last mammogram was performed 2 years and 9 months ago. History: Took hormonal contraceptives for 10 years beginning at age 25. Physical Findings: A clinical breast exam by your physician is recommended on an annual basis and results should be correlated with mammographic findings. MG 3D Screening Mammo W/Cad Bilateral CC and MLO view(s) were taken. Prior study comparison: June 30, 2018, bilateral MG 3d screening mammo w/cad. September 20, 2014, bilateral MG screening mammo w CAD. The breast tissue is heterogeneously dense. This may lower the sensitivity of mammography. Finding: There are typically benign round, grouped/clustered calcifications in the upper outer quadrant, middle position of the right breast. New finding since June 30, 2018 and September 20, 2014. ASSESSMENT: Incomplete: need additional imaging evaluation, BI-RAD 0 RECOMMENDATION: Special view mammogram of the right breast. [facility] will attempt to contact patient to return for supplemental views.
== END | disposition home or self-care (01) ==
LOC: RADMAMWWP 07:23
PROVIDERS: ATTEND Obstetrics & Gynecology
DX: Z12.31 Encounter for screening mammogram for malignant neoplasm of breast (principal); Z79.899 Other long term (current) drug therapy
CPT/HCPCS: 77063; 77067

== ENCOUNTER → 2021-03-22 | Outpatient (CLI) | payer BC ==
--- NOTE | 2021-03-27 08:43 | MM ---
Reason for exam: additional evaluation requested from abnormal screening. Last mammogram was performed less than 1 month ago. History: Patient is postmenopausal. Took hormonal contraceptives for 16 years beginning at age 25. Physical Findings: Nurse did not find any significant physical abnormalities on exam. MG 3D Work Up W/Cad RT CC with magnification, LM with magnification, and LM view(s) were taken of the right breast. Prior study comparison: March 19, 2021, bilateral MG 3d screening mammo w/cad. June 30, 2018, bilateral MG 3d screening mammo w/cad. The breast tissue is heterogeneously dense. This may lower the sensitivity of mammography. Right punctate calcifications linear group appear possible early vascular, probably benign. These results were verbally communicated with the patient and result sheet given to the patient on 03/22/21. ASSESSMENT: Probably benign, BI-RAD 3 RECOMMENDATION: Follow-up diagnostic mammogram of the right breast in 6 months.
== END | disposition home or self-care (01) ==
LOC: RADMAMWWP 13:39
PROVIDERS: ATTEND Obstetrics & Gynecology
DX: R92.1 Mammographic calcification found on diagnostic imaging of breast (principal); Z78.0 Asymptomatic menopausal state; Z79.3 Long term (current) use of hormonal contraceptives
CPT/HCPCS: 77061; 77065

== ENCOUNTER → 2021-03-29 | Outpatient (CLI) | payer BC ==
--- NOTE | 2021-03-29 15:24 | P.GSHP ---
History of Present Illness H&P Date: 03/29/21 Chief Complaint: Abnormal right breast mammogram Shama is a 50-year-old white female who had a routine mammogram performed showing an area of microcalcifications in the right breast. This was a bilateral screening mammogram on [id number]. She then underwent a right breast diagnostic mammogram and which was felt to be benign BIRADS 3. Radiographs were reviewed in detail with Dr. Gibbons from radiology. The microcalcifications were present in 2018 and most likely represent a vascular change and therefore it is safe to wait for a 6 month repeat mammogram. She does not feel any lumps masses or nodules of concern in either breast. She does not have any nipple discharge or skin changes of concern. She has not had any recent trauma or infection in the breast. She has not had any surgery in either breast. Caffeine: Occasional Nicotine: Negative Chocolate: Occasional Family history: father: of prostate cancer maternal grandfather: Esophageal cancer Paternal grandfather: Gastric cancer Hormonal history: Menarche: 11 M1, breast fed: yes, age at first : 28 periods novasure in 2014 and labs from 2 years ago confirmed menopause BCP: to regulate periods 15 years Surgical history: Cervical fusion Tonsillectomy Bilateral knee scope NovaSure Bilateral iridotomy Medical history: Asthma GERD Interstitial cystitis Social History: Nicotine: Negative Alcohol: Occasional Drugs: Negative - Constitutional Constitutional: Denies chills, Denies fever - EENT Comment: Uveitis, glaucoma Eyes: denies blurred vision, denies pain Ears: deny: decreased hearing, tinnitus Ears, nose, mouth and throat: Reports headache, Denies sore throat - Breasts Breasts: bilateral: as per HPI - Cardiovascular Cardiovascular: Denies chest pain, Denies shortness of breath - Respiratory Comment: asthma - Gastrointestinal Gastrointestinal: Denies abdominal pain, Denies diarrhea, Denies nausea, Denies vomiting - Genitourinary (Female) Comment: Interstitial cystitis Genitourinary: Denies dysuria, Denies hematuria - Menstruation Menstruation: Reports postmenopausal - Musculoskeletal Musculoskeletal: Reports neck pain - Integumentary Integumentary: Denies pruritus, Denies rash - Neurological Neurological: Reports as per HPI - Psychiatric Psychiatric: Denies anxiety, Denies depression - Endocrine Endocrine: Denies fatigue, Denies weight change - Hematologic/Lymphatic Comment: none - Allergic/Immunologic Allergic/Immunologic: Reports seasonal allergies Past Medical History Past Medical History: Asthma Additional Past Medical History / Comment(s): HX ABD. PAIN, IBS SYMPTOMS, HAD INCIDENT OF BLOOD IN STOOL History of Any Multi-Drug Resistant Organisms: None Reported Past Surgical History: Orthopedic Surgery, Tonsillectomy, Uterine Ablation Additional Past Surgical History / Comment(s): gely knee arthroscopy, surgery for glaucoma Past Anesthesia/Blood Transfusion Reactions: Previous Problems w/ Anesthesia, Postoperative Nausea & Vomiting (PONV) Additional Past Anesthesia/Blood Transfusion Reaction / Comment(s): "I'M A LIGHTWEIGHT WITH SEDATION, TOOK 4 HRS TO BE AWAKE POST UTERINE ABLATION" Past Psychological History: No Psychological Hx Reported Past Alcohol Use History: Occasional Past Drug Use History: None Reported - Past Family History Father Family Medical History: Cancer Additional Family Medical History / Comment(s): PROSTATE Mother Family Medical History: Cancer Additional Family Medical History / Comment(s): maternal grandmother-PE and DVT Medications and Allergies Home Medications Medication Instructions Recorded Confirmed Type Montelukast [Singulair] 10 mg PO HS 10/05/14 08/08/19 History Pantoprazole Sodium [Protonix] 40 mg PO DAILY 11/06/17 08/08/19 History Acetaminophen [Tylenol Extra 500 - 1,000 mg PO DIRECTED PRN 08/02/19 08/08/19 History Strength] Cholecalciferol (Vitamin D3) 2,000 unit PO DAILY 08/02/19 08/08/19 History [Vitamin D3] Ergocalciferol [Vitamin D2] 50,000 unit PO Q72H 08/02/19 08/08/19 History Ibuprofen [Advil] 200 mg PO DIRECTED PRN 08/02/19 08/08/19 History Loratadine-Pseudoeph 10-240 mg 1 tab PO DAILY PRN 08/02/19 08/08/19 History [Claritin-D 24 Hour] Mirabegron [Myrbetriq] 50 mg PO DAILY 08/02/19 08/08/19 History Mometasone/Formoterol [Dulera 200 2 puff INHALATION HS 08/02/19 08/08/19 History Mcg/5 Mcg Inhaler] Sulfamethox-Tmp 800-160Mg [Bactrim 1 tab PO Q12HR 08/02/19 08/08/19 History DS 800-160 mg] Vitamin C (Dose Unknown) 1 tab PO DIRECTED PRN 08/02/19 08/08/19 History Xopenex Inhaler 2 puff IH Q8HR PRN 08/02/19 08/08/19 History Levalbuterol Nebulized (Conc) 1 ampul INHALATION BID 08/08/19 08/08/19 History [Xopenex Nebulized (Conc)] Acetaminophen-Codeine 300-30mg 1 - 2 tab PO Q4H PRN #84 tablet 08/09/19 Rx [Tylenol #3] Ondansetron [Zofran ODT] 4 mg PO Q8HR PRN #42 tab 08/09/19 Rx Allergies Allergy/AdvReac Type Severity Reaction Status Date / Time levofloxacin [From Levaquin] Allergy Rash/Hives Verified 08/08/19 12:31 potatoes Allergy Severe Anaphylaxis Uncoded 08/08/19 12:31 Surgical - Exam - General well developed, well nourished, no distress - Eyes normal ocular movement - ENT no hearing loss - Neck no masses, trachea midline - Respiratory normal expansion, normal respiratory effort - Cardiovascular Rhythm: regular Heart Sounds: normal: S1, S2 - Abdomen Abdomen: soft - Integumentary no rash - Musculoskeletal normal gait - Psychiatric oriented to time, oriented to person, oriented to place, speech is normal, memory intact Breast exam: declined as nurse did exam and states will have exam at Dr. Simms office Results Mammogram reviewed with Dr. Gibbons from radiology/felt the microcalcifications could be followed conservatively with repeat right breast mammogram in 6 months Assessment and Plan Assessment: Impression: 1. Abnormal right breast mammogram 2. Patient declined breast examination at this time as she just had 1 from the nurses in the radiology department and will have him with Dr. acosta next week Plan: 1. Repeat right breast mammogram in 6 months with physician exam at that time 2. Patient to call sooner if any questions or concerns CC: Dr. Mckeon, Dr. Lang
[2021-03-29 15:32] VITALS: BP 116/66; PULSE 77; RESP 18; TEMP 98.4
== END ==
LOC: WWCWWP 14:47
PROVIDERS: ATTEND Surgery
DX: R92.8 Other abnormal and inconclusive findings on diagnostic imaging of breast (principal); J45.909 Unspecified asthma, uncomplicated; K21.9 Gastro-esophageal reflux disease without esophagitis; Z79.51 Long term (current) use of inhaled steroids; Z79.899 Other long term (current) drug therapy; Z88.1 Allergy status to other antibiotic agents; Z91.018 Allergy to other foods

== ENCOUNTER 2021-07-05 08:58 | Day surgery (SDC) | payer BC ==
[2021-07-03 14:53] VITALS: BMI 18.2
[~2021-07-05 08:58] MED LIST changes: -BACITRACIN 50,000 UNIT, POLYMYXIN B 500,000 UNIT in SODIUM CHLORIDE 0.9% IRRIGATIO 1,00... IRRIGATION ONE; -DEXAMETHASONE SOD PHOSPHATE 10 MG/ML 1 ML VIAL IV ONE; -HYDROmorphone 0.5 MG/0.5 ML SYRINGE IVP PRN; +LACTATED RINGERS 1,000 ML IV SCH; -LIDOCAINE 1% 20 ML VIAL (10MG/ML) FOR IV START INTRADERMA PRN; -MIDAZOLAM 2 MG/2 ML VIAL IV PRN; -ONDANSETRON 4 MG/2 ML VIAL IVP ONE; -fentaNYL (PF) 50 MCG/ML 2 ML AMP IV PRN
[2021-07-05 09:37] VITALS: RESP 16; TEMP 97.8
[2021-07-05] MEDS ORDERED: LIDOCAINE 1% INJ 10MG/ML (20 ML MDV) ONE (10:18)
[2021-07-05] MEDS ORDERED: PROPOFOL 10 MG/ML 20 ML VIAL IV ONE (10:18)
--- NOTE | 2021-07-05 10:46 | P.PCN ---
Date of Procedure: 07/05/21 Procedure(s) Performed: BRIEF HISTORY: Patient is a 50-year-old, pleasant, white female scheduled for an upper endoscopy as a part of evaluation of severe epigastric pain and heartburn for the last few weeks duration. She is presently on Prilosec 20 mg daily. PROCEDURE PERFORMED: Esophagogastroduodenoscopy with biopsy. PREOPERATIVE DIAGNOSIS: GERD and epigastric pain. IV sedation per anesthesia. PROCEDURE: After informed consent was obtained, the patient was brought into the endoscopy unit. IV sedation was administered by Anesthesia under continuous monitoring. Initially the Olympus GIF-140 video endoscope was inserted into the mouth. Esophagus intubated without any difficulty. It was gradually advanced into the stomach and duodenum and carefully examined. The bulb and the second part of the duodenum appeared normal. The scope at this time was withdrawn to the stomach, adequately insufflated with air, and upon careful examination, mucosa of the antrum, body, cardia and the fundus appeared normal. The scope was then withdrawn into the esophagus. The GE junction was located at 39 cm from the incisors. The esophagus appeared normal. There were no erosions or ulcerations seen and the patient tolerated the procedure well. IMPRESSION: 1. Minimal antral gastritis. 2. Normal-appearing esophagus with no evidence of esophagitis or Sykes's esophagus. RECOMMENDATIONS: The findings of this examination were discussed with the patient as well as a family. She was advised to follow with the biopsy results and continue with omeprazole 20 mg daily and follow antireflux measures..
[2021-07-05 10:59] VITALS: BP 122/79; PULSE 80
== END 2021-07-05 11:15 | disposition home or self-care (01) ==
LOC: ORWHC2ENDO 08:58
PROVIDERS: ATTEND Internal Medicine Gastroenterology
DX: K29.50 Unspecified chronic gastritis without bleeding (principal); Z79.899 Other long term (current) drug therapy; J45.909 Unspecified asthma, uncomplicated; K21.9 Gastro-esophageal reflux disease without esophagitis; Z79.1 Long term (current) use of non-steroidal anti-inflammatories (NSAID); Z79.51 Long term (current) use of inhaled steroids; Z98.1 Arthrodesis status; Z98.890 Other specified postprocedural states; Z88.1 Allergy status to other antibiotic agents
CPT/HCPCS: 88305; 43239; J2001; J2704

== ENCOUNTER 2021-09-28 12:37 | Emergency (ER) | payer BC, OTHER ==
[2021-09-28 12:47] VITALS: TEMP 98.7
--- NOTE | 2021-09-28 13:11 | ED ---
General Adult HPI - General Chief complaint: Upper Respiratory Infection Stated complaint: Upper Respiratory Infection Time Seen by Provider: 09/28/21 12:50 Source: patient, RN notes reviewed, old records reviewed Mode of arrival: ambulatory Limitations: no limitations - History of Present Illness Initial comments: This is a 51-year-old female who presents emergency Department complaining of congestion some dry cough for the last 2 days. Patient tested COVID positive today. Patient has severe asthma for which she is taking steroids and albuterol treatments daily. Patient denies any fever. Patient is vaccinated and has gotten a booster. Patient denies any chest pain or palpitation. Patient denies abdominal pain. - Related Data Home Medications Medication Instructions Recorded Confirmed Montelukast [Singulair] 10 mg PO HS 10/05/14 07/03/21 Cholecalciferol (Vitamin D3) 2,000 unit PO DAILY 08/02/19 07/03/21 [Vitamin D3] Mirabegron [Myrbetriq] 50 mg PO DAILY 08/02/19 07/03/21 Mometasone/Formoterol [Dulera 200 2 puff INHALATION HS 08/02/19 07/03/21 Mcg/5 Mcg Inhaler] Xopenex Inhaler 2 puff IH Q8HR PRN 08/02/19 07/05/21 Baclofen 10 mg PO HS PRN 07/03/21 07/03/21 Ibuprofen [Motrin] 400 mg PO Q6HR PRN 07/03/21 07/05/21 Omeprazole [PriLOSEC] 20 mg PO AC-BRKFST 07/03/21 07/03/21 Previous Rx's Medication Instructions Recorded Dexamethasone [Decadron] 6 mg PO DAILY #7 tablet 09/28/21 Levalbuterol Hfa Inhaler [Xopenex 2 puff INHALATION Q6HR PRN #9 gm 09/28/21 Hfa Inhaler] Allergies Allergy/AdvReac Type Severity Reaction Status Date / Time levofloxacin [From Levaquin] Allergy Rash/Hives Verified 09/28/21 12:47 potatoes Allergy Severe Anaphylaxis Uncoded 09/28/21 12:47 Review of Systems ROS Statement: Those systems with pertinent positive or pertinent negative responses have been documented in the HPI. ROS Other: All systems not noted in ROS Statement are negative. Past Medical History Past Medical History: Asthma, GERD/Reflux, Musculoskeletal Disorder Additional Past Medical History / Comment(s): concussion after hitting head >year ago, ever since steroids in the summer for asthma has had increasing GERD, frequent dysphagia-mostly to solids History of Any Multi-Drug Resistant Organisms: None Reported Past Surgical History: Orthopedic Surgery, Tonsillectomy, Uterine Ablation Additional Past Surgical History / Comment(s): gely knee arthroscopy, surgery for glaucoma, 3 level cervical fusion Past Anesthesia/Blood Transfusion Reactions: Previous Problems w/ Anesthesia, Postoperative Nausea & Vomiting (PONV) Additional Past Anesthesia/Blood Transfusion Reaction / Comment(s): "I'M A LIGHTWEIGHT WITH SEDATION, TOOK 4 HRS TO BE AWAKE POST UTERINE ABLATION" Past Psychological History: No Psychological Hx Reported Smoking Status: Never smoker Past Alcohol Use History: None Reported Past Drug Use History: None Reported - Past Family History Father Family Medical History: Cancer Additional Family Medical History / Comment(s): PROSTATE Mother Family Medical History: Cancer Additional Family Medical History / Comment(s): maternal grandmother-PE and DVT General Exam - General Exam Comments Initial Comments: GENERAL: Patient is well-developed and well-nourished. Patient is nontoxic and well- hydrated and is in mild distress. ENT: Neck is soft and supple. No significant lymphadenopathy is noted. Oropharynx is clear. Moist mucous membranes. Neck has full range of motion without eliciting any pain. EYES: The sclera were anicteric and conjunctiva were pink and moist. Extraocular movements were intact and pupils were equal round and reactive to light. Eyelids were unremarkable. PULMONARY: Unlabored respirations. Good breath sounds bilaterally. No audible rales rhonchi or wheezing was noted. CARDIOVASCULAR: There is a regular rate and rhythm without any murmurs gallops or rubs. ABDOMEN: Soft and nontender with normal bowel sounds. SKIN: Skin is clear with no lesions or rashes and otherwise unremarkable. NEUROLOGIC: Patient is alert and oriented x3. Cranial nerves II through XII are grossly intact. Motor and sensory are also intact. Normal speech, volume and content. Symmetrical smile. MUSCULOSKELETAL: Normal extremities with adequate strength and full range of motion. LYMPHATICS: No significant lymphadenopathy is noted PSYCHIATRIC: Normal psychiatric evaluation. Limitations: no limitations Course Vital Signs 09/28/21 09/28/21 09/28/21 12:44 14:00 14:03 Temperature 98.7 F Pulse Rate 107 H 98 Respiratory 20 18 18 Rate Blood Pressure 143/84 124/76 O2 Sat by Pulse 99 100 Oximetry 09/28/21 14:24 Temperature Pulse Rate 98 Respiratory 18 Rate Blood Pressure 125/68 O2 Sat by Pulse 100 Oximetry Medical Decision Making - Medical Decision Making Patient received monoclonal antibodies. Patient did test positive today. Disposition Clinical Impression: COVID-19 Disposition: HOME SELF-CARE Condition: Good Instructions (If sedation given, give patient instructions): Coronavirus Disease 2019 (COVID-19) Prescriptions: Dexamethasone [Decadron] 6 mg PO DAILY #7 tablet Levalbuterol Hfa Inhaler [Xopenex Hfa Inhaler] 2 puff INHALATION Q6HR PRN #9 gm PRN Reason: Shortness Of Breath Is patient prescribed a controlled substance at d/c from ED?: No Referrals: Garfield Mckeon DO [Primary Care Provider] - 1-2 days Time of Disposition: 14:05
[2021-09-28] MEDS ORDERED: SODIUM CHLORIDE 0.9% 50 ML IVPB ONE (14:00)
[2021-09-28] MEDS ORDERED: CASIRIVIMAB (REGN10933) (EUA) 600 MG, IMDEVIMAB (REGN10987) (EUA) 600 MG in SODIUM CHLO... IVPB ONE (14:00)
[2021-09-28 14:05] VITALS: RESP 18
[2021-09-28 15:50] VITALS: BP 130/83; PULSE 83
== END 2021-09-28 15:45 | disposition home or self-care (01) ==
LOC: EC 12:37
DX: U07.1 COVID-19 (principal); J45.909 Unspecified asthma, uncomplicated; Z79.51 Long term (current) use of inhaled steroids
CPT/HCPCS: 99283; Q0244

== ENCOUNTER → 2021-09-28 | Outpatient (CLI) | payer BC, OTHER | END | disposition home or self-care (01) | LOC: LABWHC1 10:06 | PROVIDERS: ATTEND Physician Assistant Medical | DX: U07.1 COVID-19 (principal) | CPT/HCPCS: 87635 ==

== ENCOUNTER → 2021-10-15 | Outpatient (CLI) | payer BC ==
--- NOTE | 2021-10-15 12:59 | CT ---
EXAMINATION TYPE: CT cervical spine wo con DATE OF EXAM: 10/15/2021 COMPARISON: None HISTORY: Cervicalgia. Fusion C4-C7 done in 2019, injury in 2020 with neck pain since. CT DLP: 288.[address] of the cervical spine was performed with bone and soft tissue window settings submitted . Coronal and sagittal reconstruction is obtained. There is normal alignment and prevertebral soft tissues. I do not see evidence for fracture or subluxation. Postoperative changes of anterior cervical discectomy and fusion extending from C4 through C7. Anteri or fixation plate is in place. Alignment is within normal limits. C2-3, C3-4 and C7-T1 are within nor mal limits at this time. IMPRESSION: Appropriate postoperative change and alignment.
== END | disposition home or self-care (01) ==
LOC: RADCTMAIN 12:36
PROVIDERS: ATTEND Orthopaedic Surgery Orthopaedic Surgery of the Spine
DX: Z98.1 Arthrodesis status (principal); M54.2 Cervicalgia
CPT/HCPCS: 72125

== ENCOUNTER → 2021-11-12 | Outpatient (CLI) | payer BC ==
--- NOTE | 2021-11-12 18:29 | BD ---
EXAMINATION TYPE: Axial Bone Density DATE OF EXAM: 11/12/2021 COMPARISON: NONE CLINICAL HISTORY: n95.1 Height: 5'3 Weight: 100 FRAX RISK QUESTIONS: History of Fracture in Adulthood: y Secondary Osteoporosis: RISK FACTORS HISTORY OF: Surgery to Spine: cervical When: 2019 Family History of Osteoporosis: y Postmenopausal woman: y Take estrogen and/or progesterone medications: y How lon month MEDICATIONS: Additional Medications: asthma, gerd, bladder spasm Additional History: EXAM MEASUREMENTS: Bone mineral densitometry was performed using the [employer] System. Bone mineral density as measured about the Lumbar spine is: ----- L1-L4(G/cm2): 1.062 T Score Values are as follows: ----- L2: -1.5 ----- L3: -0.7 ----- L4: -0.2 ----- L1-L4: -1.0 Bone mineral density about the R hip (g/cm2): 0.875 Bone mineral density about the L hip (g/cm2): 0.939 T Score values are as follows: -----R Neck: -1.2 -----L Neck: -0.7 -----R Total: -1.2 -----L Total: -0.9 IMPRESSION: Osteopenia (T Score between -2.5 and -1). There is slightly increased risk of fracture and the patient may be considered for treatment. Re-Screen 2-5 years. NOTE: T-SCORE=SD OF THE YOUNG ADULT MEAN.
== END ==
LOC: WWCWWP 09:40
PROVIDERS: ATTEND Obstetrics & Gynecology
DX: Z13.820 Encounter for screening for osteoporosis (principal); N95.1 Menopausal and female climacteric states; Z88.1 Allergy status to other antibiotic agents; Z91.018 Allergy to other foods
CPT/HCPCS: 77080

== ENCOUNTER → 2022-03-25 | Outpatient (CLI) | payer BC ==
[2022-03-25 14:56] LABS: Chol/HDL Ratio 3.23 Ratio; LDL Cholesterol,Calculated 121.8 mg/dL (0.0-131.0); VLDL Calculation 19.74 mg/dL (5.00-40.00)
--- NOTE | 2022-03-26 08:29 | MM ---
Reason for Exam: Screening (asymptomatic). Last mammogram was performed 1 year(s) and 1 month(s) ago. Patient History: Menarche at age 10. First Full-Term at age 28. Postmenopausal. Hormonal Contraceptives, starting at age 25 for 16 years. Risk Values: Denise 5 year model risk: 1.3%. NCI Lifetime model risk: 10.5%. Prior Study Comparison: 03/19/2021 Bilateral Screening Mammogram, [facility]. 03/22/2021 Right Diagnostic Mammogram, [facility]. 09/24/2021 Right Diagnostic Mammogram, [facility]. Tissue Density: The breast tissue is heterogeneously dense. This may lower the sensitivity of mammography. Findings: Analyzed By CAD. Benign appearing vascular calcification in the left breast is redemonstrated. There is no suspicious group of microcalcifications or new suspicious mass in either breast. Overall Assessment: Benign, BI-RAD 2 Management: Screening Mammogram of both breasts in 1 year. A clinical breast exam by your physician is recommended on an annual basis and results should be correlated with mammographic findings. Electronically signed and approved by: Chandrakant Morales M.D.
== END | disposition home or self-care (01) ==
LOC: RADMAMWWP 09:27
PROVIDERS: ATTEND Obstetrics & Gynecology
DX: Z12.31 Encounter for screening mammogram for malignant neoplasm of breast (principal); Z78.0 Asymptomatic menopausal state
CPT/HCPCS: 77063; 77067; 80061

== ENCOUNTER → 2022-07-02 | Outpatient (CLI) | payer BC ==
--- NOTE | 2022-07-03 21:30 | MR ---
EXAMINATION TYPE: MR brain wo/w con DATE OF EXAM: 07/02/2022 COMPARISON: NONE HISTORY: Headaches, dizziness, head injury 2019. TECHNIQUE: Multiplanar, multisequence images of the brain and brainstem is performed without and with IV contras t, utilizing 4.5 mL intravenous Gadavist . FINDINGS: Diffusion weighted images demonstrate no evidence of a recent infarct or other diffusion ab normality. The ventricular system and cisternal spaces are normal in size and appearance. The brain volume is age appropriate. Occasional scattered small focus of T2 hyperintensity seen throughout the white matter bilaterally. Approximately 6-8 scattered lesions are present. No suspicious intraparench ymal blood project on the T2*weighted images. Midline structures demonstrate normal morphology. The craniocervical junction appears within normal limits. Post contrast images demonstrate no abnormal enhancement. The dural venous sinuses appear pa tent. The visualized sinuses are clear and the globes are intact. Nasal septum slightly deviated to r ight of midline. No suspicious increased fluid signal bilateral mastoid air cells. IMPRESSION: Mild to minimal nonspecific white matter changes otherwise unremarkable study.
== END | disposition home or self-care (01) ==
LOC: RADMRIMAIN 19:17
PROVIDERS: ATTEND Psychiatry & Neurology Neurology
DX: R90.82 White matter disease, unspecified (principal)
CPT/HCPCS: 70553; A9585

== ENCOUNTER → 2023-02-20 | Outpatient (CLI) | payer BC ==
[2023-02-20 16:22] LABS: Basophils # (A) 0.08 X 10*3/uL (0.00-0.10); Basophils % (A) 1.4 %; Eosinophils # (A) 0.14 X 10*3/uL (0.04-0.35); Eosinophils % (A) 2.5 %; HCT 44.6 % (37.2-46.3); Immature Grans, Automated 0.4 %; Lymphocytes # (A) 2.17 X 10*3/uL (0.90-5.00); Lymphocytes % (A) 38.8 %; MCH 29.5 pg (27.0-32.0); MCHC 33.6 g/dL (32.0-37.0); MCV 87.6 fL (80.0-97.0); Mean Platelet Volume 9.5 fL (9.5-12.2); Monocytes # (A) 0.51 X 10*3/uL (0.20-1.00); Monocytes % (A) 9.1 %; NRBC Per 100 WBC 0 /100 WBCS (0.0-0.0); Neutrophils # (A) 2.68 X 10*3/uL (1.80-7.70); Neutrophils % (A) 47.8 %; Platelet Count 306 X 10*3/uL (140-440); RBC 5.09 X 10*6/uL (4.10-5.20); RDW 11.9 % (11.5-14.5)
[2023-02-20 17:13] LABS: ALT 16 U/L (8-44); AST 23 U/L (13-35); African American GFR (CKD) 97.6 (60.0-200.0); Albumin 4.9 g/dL (3.8-4.9); Albumin/Globulin Ratio 1.88 (1.60-3.17); Alkaline Phosphatase 68 U/L (41-126); BUN/Creat Ratio 16.25 Ratio (12.00-20.00); Carbon Dioxide 28.3 mmol/L (20.0-27.5); Chloride 101 mmol/L (96-109); Chol/HDL Ratio 3.21 Ratio; Globulin 2.6 g/dL (1.6-3.3); Glucose 87 mg/dL (70-110); LDL Cholesterol,Calculated 142.8 mg/dL (0.0-131.0); Non-African American GFR(CKD) 84.2 (60.0-200.0); Potassium 4.1 mmol/L (3.5-5.5); Sodium 141 mmol/L (135-145); Total Protein 7.5 g/dL (6.2-8.2)
== END | disposition home or self-care (01) ==
LOC: LABWHC1 09:42
PROVIDERS: ATTEND Internal Medicine Critical Care Medicine
DX: Z00.00 Encounter for general adult medical examination without abnormal findings (principal); K21.9 Gastro-esophageal reflux disease without esophagitis; J45.909 Unspecified asthma, uncomplicated; M51.9 Unspecified thoracic, thoracolumbar and lumbosacral intervertebral disc disorder
CPT/HCPCS: 36415; 80053; 80061; 82306; 83036; 84439; 84443; 85025

== ENCOUNTER → 2023-05-18 | Outpatient (CLI) | payer BC ==
--- NOTE | 2023-05-20 12:33 | MM ---
Reason for Exam: Screening (asymptomatic). Last mammogram was performed 1 year(s) and 1 month(s) ago. Patient History: Menarche at age 10. First Full-Term at age 28. Postmenopausal. Currently using Hormonal Contraceptives, beginning at age 25 for 16 years. Risk Values: Denise 5 year model risk: 1.3%. NCI Lifetime model risk: 10.3%. Prior Study Comparison: 09/20/2014 Bilateral Screening Mammogram, [facility]. 06/30/2018 Bilateral Screening Mammogram, [facility]. 03/19/2021 Bilateral Screening Mammogram, [facility]. 03/22/2021 Right Diagnostic Mammogram, [facility]. 09/24/2021 Right Diagnostic Mammogram, [facility]. 03/25/2022 Bilateral MG 3D screening mammo w/cad, [facility]. Tissue Density: The breast tissue is heterogeneously dense. This may lower the sensitivity of mammography. Findings: Analyzed By CAD. There is no suspicious group of microcalcifications or new suspicious mass in either breast. Overall Assessment: Negative, BI-RAD 1 Management: Screening Mammogram of both breasts in [address] [facility] will attempt to contact patient to return for supplemental views and ultrasound if indicated. Patient should continue monthly self-breast exams. A clinical breast exam by your physician is recommended on an annual basis. This exam should not preclude additional follow-up of suspicious palpable abnormalities. Note on Denise scores and lifetime risk: 1. A Denise score greater than 3% is considered moderate risk. If this is the case, consider specialist referral to assess eligibility for a risk reducing agent. 2. If overall lifetime risk for the development of breast cancer is 20% or higher, the patient may qualify for future screening with alternating mammogram and breast MRI. Electronically signed and approved by: Garfield Casas DO
== END | disposition home or self-care (01) ==
LOC: RADMAMWWP 08:01
PROVIDERS: ATTEND Obstetrics & Gynecology
DX: Z12.31 Encounter for screening mammogram for malignant neoplasm of breast (principal); Z78.0 Asymptomatic menopausal state
CPT/HCPCS: 77063; 77067

== ENCOUNTER → 2023-08-18 | Outpatient (CLI) | payer BC ==
[2023-08-18 18:28] LABS: Blood Urea Nitrogen 11.2 mg/dL (9.0-27.0); Glucose 91 mg/dL (70-110)
[2023-08-18 18:29] LABS: ALT 12 U/L (8-44); AST 23 U/L (13-35); Albumin 4.2 g/dL (3.8-4.9); Alkaline Phosphatase 58 U/L (41-126); Calcium 9.1 mg/dL (8.7-10.3); Carbon Dioxide 27.8 mmol/L (21.6-31.8); Chloride 104 mmol/L (96-109); Globulin 2.1 g/dL (1.6-3.3); Potassium 3.9 mmol/L (3.5-5.5); Sodium 141 mmol/L (135-145); Total Bilirubin 0.3 mg/dL (0.3-1.2); Total Protein 6.3 g/dL (6.2-8.2)
== END | disposition home or self-care (01) ==
LOC: LABWHC1 13:45
PROVIDERS: ATTEND Internal Medicine Interventional Cardiology
DX: R00.2 Palpitations (principal)
CPT/HCPCS: 36415; 80053; 84443

== ENCOUNTER → 2024-06-09 | Outpatient (CLI) | payer BC ==
[2024-06-09 13:35] LABS: ALT 17 U/L (4-34); AST 31 U/L (14-36); African American GFR (CKD) >90 (>60 ml/min/1.73 sqM); Anion Gap 7 mmol/L; Blood Urea Nitrogen 13 mg/dL (7-17); Calcium 9.2 mg/dL (8.4-10.2); Carbon Dioxide 28 mmol/L (22-30); Chloride 102 mmol/L (98-107); Creatine Kinase 70 U/L (30-135); Glucose 82 mg/dL (74-99); Non-African American GFR(CKD) >90 (>60 ml/min/1.73 sqM); Potassium 4.3 mmol/L (3.5-5.1); Sodium 137 mmol/L (137-145); Uric Acid 4.4 mg/dL (3.7-7.4)
[2024-06-09 14:54] LABS: C Reactive Protein <0.5 mg/dL (<1.0)
[2024-06-09 15:08] LABS: T4, Free (Free Thyroxine) 0.97 ng/dL (0.78-2.19)
[2024-06-09 15:29] LABS: Basophils # (A) 0.06 X 10*3/uL (0.00-0.10); Basophils % (A) 0.7 %; Eosinophils # (A) 0.22 X 10*3/uL (0.04-0.35); Eosinophils % (A) 2.6 %; HCT 40.3 % (37.2-46.3); HGB 13.6 g/dL (12.0-15.0); Lymphocytes # (A) 1.87 X 10*3/uL (0.90-5.00); Lymphocytes % (A) 21.9 %; MCH 28.8 pg (27.0-32.0); MCHC 33.7 g/dL (32.0-37.0); MCV 85.2 FL (80.0-97.0); Mean Platelet Volume 9.5 FL (9.5-12.2); Monocytes # (A) 0.51 X 10*3/uL (0.20-1.00); NRBC Per 100 WBC 0 X 10*3/uL (0.00-0.01); Neutrophils # (A) 5.82 X 10*3/uL (1.80-7.70); Neutrophils % (A) 68.3 %; Platelet Count 279 X 10*3/uL (140-440); RBC 4.73 X 10*6/uL (4.10-5.20); RDW 11.9 % (11.5-14.5); WBC 8.52 X 10*3/uL (4.50-10.00)
[2024-06-09 15:58] LABS: Erythrocyte Sedimentation Rate 3 mm/Hr (0-30)
[2024-06-09 18:39] LABS: Prealbumin 22.7 mg/dL (18.0-42.0)
[2024-06-09 19:02] LABS: Rheumatoid Factor, Qnt <15 IU/mL (0-15); Testosterone <10.00 ng/dL (7.00-45.62)
[2024-06-10 00:24] LABS: Cyclic Citrull Pep IgG Unit <1.5 U/mL (<=3.9); Cyclic Citrullinated Pep IgG Negative
[2024-06-10 09:10] LABS: HLA B27 POSITIVE
== END | disposition home or self-care (01) ==
LOC: LABWHC1 11:53
PROVIDERS: ATTEND Orthopaedic Surgery
DX: M47.892 Other spondylosis, cervical region (principal); M49.8 Spondylopathy in diseases classified elsewhere
CPT/HCPCS: 36415; 80048; 82009; 82306; 82550; 82652; 82671; 83520; 83970; 84134; 84403; 84439; 84443; 84450; 84460; 84550; 85025; 85652; 86038; 86140; 86200; 86431; 86812

== ENCOUNTER → 2024-10-15 | Outpatient (CLI) | payer BC ==
[2024-10-16 09:07] LABS: ALT 14 U/L (8-44); AST 23 U/L (13-35); Albumin 4.2 g/dL (3.8-4.9); Albumin/Globulin Ratio 1.68 Ratio (1.60-3.17); Alkaline Phosphatase 61 U/L (41-126); BUN/Creat Ratio 15.86 Ratio (12.00-20.00); Blood Urea Nitrogen 11.1 mg/dL (9.0-27.0); Calcium 9.5 mg/dL (8.7-10.3); Carbon Dioxide 26.5 mmol/L (21.6-31.8); Chloride 104 mmol/L (96-109); Chol/HDL Ratio 3.24 Ratio; Estradiol 49.3 pg/mL; Globulin 2.5 g/dL (1.6-3.3); Glucose 81 mg/dL (70-110); LDL Cholesterol,Calculated 131.4 mg/dL (0.0-131.0); Potassium 4.3 mmol/L (3.5-5.5); Sodium 140 mmol/L (135-145); Total Bilirubin 0.5 mg/dL (0.3-1.2); Total Protein 6.7 g/dL (6.2-8.2); VLDL Calculation 19.34 mg/dL (5.00-40.00)
[2024-10-16 09:26] LABS: Testosterone <10.00 ng/dL (7.00-45.62)
[2024-10-16 09:52] LABS: Follicle Stimulating Hormone 66.1 mIU/mL
== END | disposition home or self-care (01) ==
LOC: LABWHC1 09:45
PROVIDERS: ATTEND Obstetrics & Gynecology
DX: Z01.419 Encounter for gynecological examination (general) (routine) without abnormal findings (principal)
CPT/HCPCS: 36415; 80053; 80061; 82670; 83001; 84144; 84403; 84439; 84443

== ENCOUNTER → 2024-10-20 | Outpatient (CLI) | payer BC ==
--- NOTE | 2024-10-20 08:17 | MM ---
Reason for Exam: Screening (asymptomatic). Last mammogram was performed 1 year(s) and 5 month(s) ago. Patient History: Menarche at age 10. First Full-Term at age 28. Postmenopausal. Currently using Hormonal Contraceptives, beginning at age 25 for 16 years. Risk Values: Denise 5 year model risk: 1.4%. NCI Lifetime model risk: 9.9%. Prior Study Comparison: 09/24/2021 Right Diagnostic Mammogram, [facility]. 03/25/2022 Bilateral MG 3D screening mammo w/cad, [facility]. 05/18/2023 Bilateral MG 3D screening mammo w/cad, [facility]. Tissue Density: The breasts are heterogeneously dense, which may obscure small masses. Findings: Analyzed By CAD. Right breast: There is no suspicious group of microcalcifications or new suspicious mass. Benign-appearing calcifications right breast. Left breast: There is no suspicious group of microcalcifications or new suspicious mass. Benign-appearing calcifications left breast. Overall Assessment: Negative, BI-RAD 1 Management: Screening Mammogram of both breasts in [address] [facility] will attempt to contact patient to return for supplemental views and ultrasound if indicated. Patient should continue monthly self-breast exams. A clinical breast exam by your physician is recommended on an annual basis. This exam should not preclude additional follow-up of suspicious palpable abnormalities. Note on Denise scores and lifetime risk: 1. A Denise score greater than 3% is considered moderate risk. If this is the case, consider specialist referral to assess eligibility for a risk reducing agent. 2. If overall lifetime risk for the development of breast cancer is 20% or higher, the patient may qualify for future screening with alternating mammogram and breast MRI. [facility], , 10/20/2024 8:14 AM. Electronically signed and approved by: Garfield Casas DO
== END | disposition home or self-care (01) ==
LOC: RADMAMWWP 07:19
PROVIDERS: ATTEND Obstetrics & Gynecology
DX: Z12.31 Encounter for screening mammogram for malignant neoplasm of breast (principal); R92.333 Mammographic heterogeneous density, bilateral breasts; Z78.0 Asymptomatic menopausal state; R92.1 Mammographic calcification found on diagnostic imaging of breast
CPT/HCPCS: 77063; 77067

== ENCOUNTER → 2024-12-10 | Outpatient (CLI) | payer BC | END | disposition home or self-care (01) | LOC: LABWHC1 11:24 | PROVIDERS: ATTEND Orthopaedic Surgery | DX: Z01.84 Encounter for antibody response examination (principal) | CPT/HCPCS: 36415; 86735; 86762; 86765 ==